=== PATIENT | female | born 1970 | race Caucasian/White ===

== ENCOUNTER → 2018-02-14 12:32 | Outpatient (CLI) | payer OTHER, SELFPAY ==
--- NOTE | 2018-02-14 12:36 | XR_ITS ---
XR knee RT 4V COMPARISON: None HISTORY: Right knee pain TECHNIQUE: AP lateral and oblique views and sunrise view FINDINGS: There is a hemiarthroplasty present with a metallic prosthesis covering the medial femoral condyle and a small tibial plateau prosthesis covering the medial tibial plateau. Both are in good alignment. There is minor spurring of tibial spines and there is mild joint space narrowing laterally there is a possible tiny bone fragment adjacent to the anterior tibial plateau only definitely seen on the lateral view. This does not appear to be within the knee joint. IMPRESSION: Post hemiarthroplasty with satisfactory alignment of the femoral and tibial plateau prosthesis
== END ==
PROVIDERS: PCP Family Medicine; Visit Provider Orthopaedic Surgery
DX: M25.561 Pain in right knee (principal)
CPT/HCPCS: 73564